=== PATIENT | female | born 1945 | race Caucasian/White ===

== ENCOUNTER → 2017-09-25 | Day surgery (SDC) | payer OTHER ==
[2017-09-24 11:10] VITALS: BMI 35.0
--- NOTE | 2017-09-24 19:32 | HISTORY & PHYSICAL EXAMINATION ---
DATE OF ADMISSION: 09/25/2017 CHIEF COMPLAINT: Chronic left knee pain. HISTORY OF PRESENT ILLNESS: This is a 71-year-old female patient of Dr. Zarate, complaining of left knee pain for approximately 2 months now, it is progressively getting worse. The patient has tried intra-articular injections which did not help the knee and also caused a steroid flare. She does have instability with medial joint line tenderness. After failure of conservative treatment, the patient wished to proceed with left knee arthroscopic chondroplasty and possible partial medial meniscectomy. PAST MEDICAL HISTORY: Heart murmur, hypertension, asthma, anxiety, osteoarthritis, obesity, dental issues. SOCIAL HISTORY: A 25-year smoker. She is an occasional drinker. SURGICAL HISTORY: Ovarian cyst, tonsillectomy, hysterectomy, right knee replacement, right thumb. FAMILY HISTORY: Noncontributory. REVIEW OF SYSTEMS: The patient complains of left knee pain that has failed conservative treatment over the past 2 months. Otherwise, denies any shortness of breath, chest pain, nausea, vomiting or any other joint complaints. MEDICATIONS: Valsartan/hydrochlorothiazide 160/12.5 daily, loratadine 10 mg as needed, fluticasone 50 mcg 1 spray in each nostril as needed, Ventolin HFA 90 mcg 2 puffs every 4-6 hours as needed, Symbicort 80/4.5 mcg 2 puffs 2 times daily as needed, Zaditor 0.025% eyedrops 2 times daily as needed, flaxseed oil daily, glucosamine and chondroitin daily, vitamin D3 daily, Zoloft 50 mg 3 tablets daily as needed, Mobic 15 mg daily. ALLERGIES: PENICILLIN, SULFA, SHELL FISH/ IODINE PHYSICAL EXAMINATION: GENERAL: Well-developed, well-nourished 71-year-old female in no acute distress. She is alert and oriented x3 and pleasant. HEENT: Normocephalic, atraumatic. Extraocular motion intact. Pupils are equal and reactive to light. HEART: Regular rate and rhythm with a 3/6 murmur appreciated. LUNGS: Clear. ABDOMEN: Soft and nontender. Bowel sounds present. EXTREMITIES: Left knee range of motion of 0 to 125. She has medial joint line tenderness with a positive Artemio's. She is stable. NEUROLOGIC: Neurovascularly, she is intact in her left lower extremity. DIAGNOSES: Left knee medial meniscus tear and arthritis. She also has a history of murmur, hypertension, asthma, anxiety, osteoarthritis, obesity, dental issues. PLAN: The patient was advised of her diagnosis. Indications, risks, benefits, postop course have all been reviewed. The patient wished to proceed with left knee arthroscopic chondroplasty and partial medial meniscectomy. Necessary consent forms, preoperative testing and clearances will be obtained. TRICIA
[~2017-09-25] VITALS: Ht 167.6 cm; Wt 97.7 kg
[~2017-09-25] MED LIST: ASPEC81 PO; ATROPINE SULFATE 0.1 MG/ML 5ML SYR IV PRN; BUPIVACAINE/EPINEPHRINE 0.5% MPF 1:200,000 30 ML VIAL ONE; CHOL1CAP57 PO; CLINDAMYCIN 600 MG/54 ML D5W IV SCH; CYAN100020 PO; DEXAMETHASONE SOD INJ 4 MG/ML VIAL ONE; EpHEDrine SULFATE 50MG/5ML SYR ONE; EpHEDrine SULFATE INJ 50 MG/ML AMP IV PRN; FENTANYL CITRATE INJ 50 MCG/1 ML 2 ML VIAL ONE; FLUMAZENIL 0.1 MG/1 ML 10 ML VIAL IV PRN; FLUT0.15 INTNAS; GLUC10007 PO; HYDR-5688 PO; HYDROCODONE/ACETAMIN 5/325MG TAB PO PRN; HYDROmorphone INJ 1 MG/ML SYR IV PRN; KETOROLAC TROMETHAMINE 30 MG/ML VIAL ONE; LABETALOL HCL IV 5 MG/ML 20ML IV PRN; LACTATED RINGER'S 1000ML 1,000 ML IV SCH; LIDOCAINE HCL 2% 2 ML VIAL (20MG/ML) ONE; LORA10CA2 PO; MIDAZOLAM HCL 1 MG/ML 2ML VIAL ONE; NALOXONE HCL 0.4 MG/1 ML VIAL/CARP IV PRN; ONDANSETRON INJ 2 MG/ML 2 ML VIAL IV PRN; ONDANSETRON INJ 2 MG/ML 2 ML VIAL ONE; PROMETHAZINE HCL INJ 12.5 MG in SODIUM CHLORIDE 0.9% 50ML 50 ML IV PRN; PROPOFOL IV EMULSION 10 MG/ML 20 ML VIAL IV ONE; SERT50TA PO; SODIUM CHLORIDE 0.9% 1000ML 1,000 ML IV SCH; SYMIN/8045 INH; VALS160T58 PO; VNTHFA/IN INH; [UNRECOGNIZED DRUG - CODE] OPB
[2017-09-25 05:37] VITALS: BP 152/75; PULSE 62; TEMP 36.7; O2SAT 94; Ht 167.6 cm; Wt 97.7 kg
--- NOTE | 2017-09-25 06:54 | History & Physical Bridge Note ---
H&P Re-Evaluation Bridge Note: I have examined the patient, reviewed the History & Physical and in the interval since the performance of the History & Physical I have noted the following changes of clinical significance: No changes noted
--- NOTE | 2017-09-25 07:58 | Discharge Instructions ---
Discharge Instructions Date of Service Sep 25, 2017. Admission Reason for Admission: Left Knee Post Traumatic Degenerative Joint Diseas Discharge Discharge Diagnosis / Problem: Left knee scope, partial medial menisectomy, chondroplasty Discharge Goals Goal(s): Improve function Activity Recommendations Activity Limitations: as noted below . Instructions / Follow-Up Instructions / Follow-Up Weight bear as tolerated, may use crutches or walker if needed but not necessary. Keep dressings clean, dry and in tact, may change dressings post op day #2, if not draining, band aides over portals will be fine. Do not shower until after dressing change post op day #2. Ice/ Elevate as needed. Take an 81mg aspirin twice daily for 30 days to prevent blood clots. Melrose for pain as needed. Begin physical therapy 2-3 days post op. Follow up with Dr. Montalvo's office 10-12 days post op as scheduled, call to confirm appt. or if any questions. Current Hospital Diet Patient's current hospital diet: Discharge Diet Recommended Diet: Regular Diet Procedures Procedures Performed: Left Knee Arthroscopic Chondroplasty, Partial Medical Menisectomy Pending Studies Studies pending at discharge: no Medical Emergencies . Who to Call and When: Medical Emergencies: If at any time you feel your situation is an emergency, please call 911 immediately. . Non-Emergent Contact Non-Emergency issues call your: Primary Care Provider . "Provider Documentation" section prepared by Eric Arreaga. . VTE Core Measure Inpt VTE Proph given/why not?: SCD's
--- NOTE | 2017-09-25 08:05 | [facility] Post Operative Brief Note ---
Immediate Operative Summary Operative Date Sep 25, 2017. Pre-Operative Diagnosis Left Knee Post Traumatic Degenerative Joint Disease Post-Operative Diagnosis Same as preop,medial meniscal tear ,degenerative lateral meniscus Procedure(s) Performed Left Knee Arthroscopic Chondroplasty, Partial Medial and lateral Menisectomy Surgeon Dr. Montalvo Global Security Architect Surgeon(s) none Estimated Blood Loss 3 ml Findings Consistent with Post-Op Diagnosis Specimens none per Surgeon Drains None Anesthesia Type General Complication(s) none Disposition Disposition: Recovery Room / PACU
--- NOTE | 2017-09-25 08:54 | Anesthesiology Progress Note ---
Anesthesia Post Op Note Date & Time Sep 25, 2017 at 08:53 Vital Signs Pain Intensity: 0 Vital Signs Past 12 Hours Date Time Temp Pulse Resp B/P (MAP) Pulse Ox O2 Delivery O2 Flow Rate FiO2 09/25/17 08:50 36.8 79 16 129/84 95 Room Air 09/25/17 08:40 80 16 139/94 93 Room Air 09/25/17 08:30 79 16 136/79 98 Oxymask 10 09/25/17 08:20 78 16 122/82 97 Oxymask 10 09/25/17 08:10 37.2 82 16 141/95 97 Oxymask 10 09/25/17 05:37 36.7 62 20 152/75 (100) 94 Room Air Notes Mental Status: alert / awake / arousable, participated in evaluation Pt Amnestic to Procedure: Yes Nausea / Vomiting: adequately controlled Pain: adequately controlled Airway Patency, RR, SpO2: stable & adequate BP & HR: stable & adequate Hydration State: stable & adequate Anesthetic Complications: no major complications apparent
[2017-09-25 09:00] VITALS: BP 149/80; PULSE 76; TEMP 36.5; O2SAT 95
[2017-09-25 09:30] VITALS: BP 135/69; PULSE 78; O2SAT 92
--- NOTE | 2017-09-25 09:34 | OPERATIVE REPORT ---
DATE OF OPERATION: 09/25/2017 INDICATION FOR PROCEDURE: The patient is a 71-year-old female with left knee pain. She has osteoarthritis in her knee. She is not [id number] on any views. She has history of a lateral tibial plateau open reduction and internal fixation. She has a hardware in her proximal tibia and a bone substitute in the metaphysis tibial plateau. She had increasing pain and swelling in her knee. Her exam was more consistent with a medial meniscus tear. We could not get an MRI because of the hardware. She has a knee effusion. She failed conservative management including aspiration injection steroid. PREOPERATIVE DIAGNOSES: Left knee posttraumatic osteoarthritis and probable medial meniscus tear. POSTOPERATIVE DIAGNOSES: Posttraumatic osteoarthritis, left knee with radial tear of posterior horn of the medial meniscus, degeneration of medial meniscus, root detachment of medial meniscus, tricompartmental degeneration of lateral meniscus, synovitis. PROCEDURES: Left knee arthroscopy, partial medial meniscectomy, partial lateral meniscectomy for compartment chondroplasty, partial synovectomy. SURGEON: Dr. Bird Montalvo. EXPERIMENTAL ELECTRONICS DEVELOPER: None. ANESTHESIA: General. OPERATIVE PROCEDURE: The patient was taken to the operating room, anesthetized under general anesthetic. She was placed supine on the operating room table. Pneumatic tourniquet placed on the left upper thigh. Left lower extremity demonstrated scars from prior surgery, knee effusion and no instability. Left lower extremity had a pneumatic tourniquet placed about her upper thigh. Then her left lower extremity was prepped and draped with ChloraPrep in usual fashion. Leg was elevated, exsanguinated with Esmarch bandage and a pneumatic tourniquet was raised to 325 mmHg. Arthroscopy was performed via inferomedial and inferolateral arthroscopy portals. The following findings were noted. In the patellofemoral joint, she had some grade 3 chondromalacia on the patella and the trochlear groove with a generalized thinning in the entire trochlear groove. No exposed bone. She had some thickened scarred synovium around the patella. In the medial compartment, she had some grade 3 changes on the medial femoral condyle, grade 2 changes on tibial plateau. She had a complex medial meniscus tear with a degenerative type tear. She had a radial tear at the root attachment with root detachment and unstable flaps at the area of the radial tear and some undersurface and inner margin degenerative tearing of the section of the meniscus between the radial tear and the mid meniscus. There was some synovitis in the anterior joint area. She had intact cruciate ligaments. In the lateral compartment, she had some small delaminating flaps and fraying, grade 3 wear in the area of the prior fracture. There is no significant step-off at the fracture site. She had some inner margin degenerative tearing of the lateral meniscus, but no instability. The lateral femoral condyle was still a good articular surface. A partial medial meniscectomy was performed using a combination of upbiting basket 1.5 linear punch to remove the unstable flaps and a 4.5 full radius resector and a 3.5 angled incisor blade. Partial medial meniscectomy was performed. The posterior root attachment flap was resected. The remainder of the meniscus was contoured to a stable edge and all unstable flaps were removed. Then, some partial synovectomy was performed in the anterior joint, around the patellofemoral joint as well. We did a chondroplasty of the medial femoral condyle and tibial plateau frayed areas. Then, we went ahead and did a partial meniscectomy in the inner margin of the lateral meniscus, then did a chondroplasty of the lateral tibial plateau moving all the delaminated flaps and smoothed down the frayed grade 3 area on the tibial plateau. Then, we went ahead and did a chondroplasty of the patellofemoral joint, smoothing down all the grade 3 areas of wear. The scarred synovial tissue impinging on the patellofemoral joint was all removed around the patella. The knee was copiously irrigated to free of any debris. Knee was injected with 30 mL of Marcaine with epinephrine. Port sites were closed with nylon sutures. Sterile dressings were applied and Lloyd wrap placed from the foot to the thigh. Tourniquet was let down and the patient had good capillary refill to the extremity. She tolerated the procedure well with blood loss estimated at 3 mL. I attest to the content of the Intraoperative Record and any orders documented therein. Any exception s are noted below.
[2017-09-25 10:03] VITALS: BP 132/76; PULSE 80; TEMP 36.4; O2SAT 92
== END | disposition home or self-care (01) ==
LOC: C.ACU 05:06
PROVIDERS: ATTEND Orthopaedic Surgery Sports Medicine
DX: M23.222 Derangement of posterior horn of medial meniscus due to old tear or injury, left knee (principal); M23.262 Derangement of other lateral meniscus due to old tear or injury, left knee; M17.32 Unilateral post-traumatic osteoarthritis, left knee; I10 Essential (primary) hypertension; F32.9 Major depressive disorder, single episode, unspecified; J45.909 Unspecified asthma, uncomplicated; F17.200 Nicotine dependence, unspecified, uncomplicated; E66.9 Obesity, unspecified; Z68.35 Body mass index [BMI] 35.0-35.9, adult; Z88.1 Allergy status to other antibiotic agents; Z88.2 Allergy status to sulfonamides; Z91.013 Allergy to seafood